=== PATIENT | male | born 1945 | race Caucasian/White ===

== ENCOUNTER → 2020-12-05 10:58 | Outpatient (CLI) | payer MEDICARE, SELFPAY | PROVIDERS: PCP Family Medicine; Visit Provider Physician Assistant | DX: R94.31 Abnormal electrocardiogram [ECG] [EKG] (principal); Z01.810 Encounter for preprocedural cardiovascular examination; Z85.46 Personal history of malignant neoplasm of prostate | CPT/HCPCS: 93306 ==